=== PATIENT | female | born 1960 | race Caucasian/White ===

== ENCOUNTER 2016-10-20 07:51 | Inpatient (IN) | payer OTHER, SELFPAY ==
[~2016-10-20] VITALS: Ht 157.5 cm; Wt 60.6 kg
[~2016-10-20 07:51] MED LIST: ASPIRIN EC325 MG PO; CALCIUM600 MG PO; CELEXA DPS20 MG PO; DAILY MULTIPLE1 EAC1 PO; GINKGO BILOBA40 M1 PO; KEPPRA XR500 MG PO; VITAMIN D-32000 UNI1 PO; XANAX DPS0.5 MG PO
[2016-10-22] MEDS ORDERED: XANAX DPS0.5 MG PO (20:04)
[2016-10-22] MEDS ORDERED: CELEXA DPS20 MG PO (20:04)
[2016-10-22] MEDS ORDERED: KEPPRA DPS500 MG PO (20:04)
[2016-10-22] MEDS ORDERED: COUMADIN2.5 MG PO (20:05)
[2016-10-22] MEDS ORDERED: COLACE-DPS100 MG PO (20:05)
[2016-10-22] MEDS ORDERED: LIPITOR DPS10 MG PO (20:05)
--- NOTE | 2016-10-23 08:06 | HP ---
ADMIT: 10/20/2016 RM/LOC: 422 [facility] MR#: [id number] [id number] [facility] [address] [place] [id number] HANNAH ARIAS [address] [place] [id number] History and Physical SEX: F AGE: 56 : 1960 DATE OF SERVICE: CHIEF COMPLAINT: Difficulty speaking. HISTORY OF PRESENT ILLNESS: This is a 56-year-old female. She has a past medical history of CVA and some seizure disorder. She presented after noting she could not talk at about 6:45 this morning. It came on out of the blue. No prodromal symptoms. She presented to the emergency room and her symptoms did seem to get a little better, but then seemed to vary a little bit. She denied any headache, fever, chills, or other symptoms. She has started no new other medications. She did stop her medicine for cholesterol recently because of some associated muscle and joint aches and pains. She also had a right forearm lesion that was biopsied. Interestingly enough, this showed granulomatous dermatitis. At the current time, the patient is having mostly expressive aphasia. Denies any weakness, troubles anywhere else on her body. Her JAG stroke scale is 1 to 2 depending on a few label her inability to say the date but ability to write it down as 0 or 1 on that section. PAST MEDICAL HISTORY: She has had colon polyps, history of CVA, seizure disorder. She has had insomnia, anxiety, depression, and osteoporosis. PAST SURGICAL HISTORY: She has had a hysterectomy. ALLERGIES: NONE. FAMILY HISTORY: Reviewed, but noncontributory. 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 She has never smoked. REVIEW OF SYSTEMS: Other complete review of systems obtained and negative except as above. PHYSICAL EXAMINATION: VITAL SIGNS: Blood pressure currently 120s over 60s, heart rates in the 50s, respirations 16, oxygen saturation 99% on room air. GENERAL: This is a well-appearing 56-year-old female. She is in no apparent distress. She is alert. She is oriented. HEENT: She is wearing glasses. HEENT: Pupils are equal, round, and reactive to light and accommodation. Her extraocular muscles are intact. Her throat is clear. Normal oral musculature movement. NECK: Supple. Normal range of motion. Trachea midline. Thyroid not palpable. HEART: Regular rate and rhythm. 3/6 systolic murmur, heard best at the right sternal border. LUNGS: Clear to auscultation bilaterally. ABDOMEN: Soft, without any tenderness. EXTREMITIES: Lower extremities have no edema. Upper extremities with no edema. ADMIT: 10/20/2016 RM/LOC: 422 [facility] MR#: [id number] [address] [address] [place] [address] History and Physical SEX: F AGE: 56 : 1960 SKIN: Has no other rashes other than her healing wound on the right forearm. MUSCULOSKELETAL: She can move her upper extremities and lower extremities equally bilaterally. Her strength is normal, and normal range of motion. NEUROLOGIC: Cranial nerves are intact except for expressive speech. She can express things, but it is delayed. She prefers to write them down. She does give one-word answers correctly and effectively. She can [id number]. Coordination is normal. LABORATORY AND X-RAY DATA: She did have an MRI showing left parietal CVA. Labs all looked okay. ASSESSMENT: 1. Acute left cerebrovascular accident. 2. Expressive aphasia. 3. History of seizure disorder. 4. Granulomatous dermatitis. PLAN: She has been admitted to the hospital. We will give her a little Lovenox for VTE prophylaxis, continue her aspirin for anti-platelet therapy and then she will likely need Coumadin. She ordered hypercoagulable testing to be done on her given this is her second CVA without a known cause. We will continue to monitor on tele and we will evaluate with an echocardiogram as well. We will continue with speech therapy and we will get this set up also. With her new CVAs and this granulomatous dermatitis, question whether she has an autoimmune-type disorder perhaps contributing to her hypercoagulable state. We will see what those lab tests show. We will go from there. Seth Newell MD/ stephanie JOB #: [id number] CC: Seth Newell MD, Attending Physician Seth Newell MD, Family Physician
--- NOTE | 2016-10-24 13:05 | ER ---
ADMIT: 10/20/2016 RM/LOC: 422 [facility] MR#: [id number] [address] [address] HANNAH ARIAS [address] [place] [id number] Emergency Room Report SEX: F AGE: 56 : 1960 DATE: 10/20/2016 A 56-year-old female comes to the Emergency Department by squad after awaking this morning around 6:30 or 7, and was unable to speak. In actuality, she could speak, it just took her several minutes to express even one word. She had no other complaints. Her past history is significant for CVA and seizure. LIMITED PHYSICAL EXAMINATION: GENERAL: Reveals a 56-year-old female, in no acute distress. Again, she is able to speak, but it takes perhaps 2 minutes to say one word. There are no other focal neurologic findings. CARDIAC: Regular rate and rhythm. LUNGS: Clear to auscultation. ABDOMEN: Soft and nontender. EXTREMITIES: Unremarkable. CT scan of the head is negative. EKG is unremarkable. Laboratory work is unremarkable. The patient is being admitted with CVA. Efrain Sullivan MD/ stephanie JOB #: [id number] CC: Seth Newell MD, Attending Physician Seth Newell MD, Family Physician
--- NOTE | 2016-10-28 12:11 | ER ---
ADMIT: 10/20/2016 RM/LOC: 422 [facility] MR#: [id number] [address] [address] HUGO HANNAH Diana [address] [place] [id number] Emergency Room Report SEX: F AGE: 56 : 1960 DATE: 10/20/2016 ADDENDUM: There was an inclusion criteria for IV tPA. This lady did not meet the criteria for tPA administration. Efrain Sullivan MD/ stephanie JOB #: [id number] CC: Seth Newell MD, Attending Physician Seth Newell MD, Family Physician
--- NOTE | 2016-11-07 09:35 | DS ---
ADMIT: 10/20/2016 RM/LOC: 422 [facility] MR#: [id number] [address] [address] HANNAH ARIAS [address] [place] [id number] Discharge Summary SEX: F AGE: 56 : 1960 ADMISSION DATE: 10/20/2016 DISCHARGE DATE: 10/21/2016 DISCHARGE DIAGNOSES: 1. New acute CVA (cerebrovascular accident). 2. Expressive aphasia. 3. History of seizure disorder. 4. Granulomatous dermatitis. 5. History of CVA (cerebrovascular accident). 6. History of insomnia. 7. History of anxiety. 8. History of depression. 9. History of colon polyps. 10.History of osteoporosis. HOSPITAL COURSE: The patient was admitted. Had an expressive an aphasia. Was admitted and treated. Was started on p.o. Coumadin. Patient seemed to be stable. She was seen by speech, PT and OT. Overall, the patient was doing quite stable and the plan was for her to be discharged home. Her discharge instructions were Celexa 20 mg p.o. at bedtime, Colace 100 mg p.o. b.i.d., Coumadin 2.5 p.o. daily, Keppra 500 mg p.o. b.i.d. with 250 p.o. b.i.d., Lipitor 10 mg p.o. at bedtime. She is to get an INR on Sunday. She is to see Dr. Newell in 7-10 days. The patient will decide on Sunday whether or not she is ready to return to work on Sunday and will be given a note at that time. Otherwise, I spent 35 minutes in the discharge planning, coordination and care of this patient. Chrissy Tarango MD/ zafar JOB #: [id number] CC: Seth Newell MD, Attending Physician Seth Newell MD, Family Physician
== END 2016-10-21 15:15 | disposition home or self-care (01) | DRG 66 ==
LOC: ER 07:51 → 4PCU 09:11
PROVIDERS: ADMIT Internal Medicine
DX: I63.9 Cerebral infarction, unspecified (principal); F32.9 Major depressive disorder, single episode, unspecified; R47.02 Dysphasia; G40.909 Epilepsy, unspecified, not intractable, without status epilepticus; L30.8 Other specified dermatitis; G47.00 Insomnia, unspecified; F41.9 Anxiety disorder, unspecified; M81.0 Age-related osteoporosis without current pathological fracture; Z86.73 Personal history of transient ischemic attack (TIA), and cerebral infarction without residual deficits; Z86.010 Personal history of colon polyps